=== PATIENT | female | born 2000 | race Caucasian/White ===

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

== ENCOUNTER 2019-04-21 21:07 | Emergency (ER) | payer SELFPAY ==
[~2019-04-21] VITALS: Ht 165 cm; Wt 99.7 kg
[~2019-04-21 21:07] MED LIST changes: -BENZ-13 PO; +BENZ100C18 PO; +METR-145 PO; -METR500T21 PO; +ONDA4TAB8 PO
[2019-04-21] MEDS ORDERED: LACTATED RINGERS 1,000 ML IV ONE (22:37)
[2019-04-21 22:45] LABS: BILIRUBIN,URINE NEGATIVE (NEGATIVE); CLARITY,URINE SLIGHTLY CLOUDY; COLOR,URINE YELLOW; GLUCOSE, URINE (UA) NEGATIVE (NEGATIVE); KETONES,URINE NEGATIVE (NEGATIVE); LEUKOCYTE ESTERASE ,URINE 1+ (NEGATIVE); NITRITE,URINE NEGATIVE (NEGATIVE); PH,URINE 5 (5-9); PROTEIN,URINE 2+ (NEGATIVE)
[2019-04-21] MEDS ORDERED: KETOROLAC 30 MG/ML VIAL IVP STA (22:45)
[2019-04-21] MEDS ORDERED: ONDANSETRON 4 MG/2 ML (SDV) Z0FRAN IVP ONE (22:45)
[2019-04-21 22:46] LABS: BASOPHILS # (AUTO) 0.1 10^3/uL (0.0-0.1); BASOPHILS % (AUTO) 0 % (0-10); EOSINOPHILS # (AUTO) 0.4 10^3/uL (0.0-0.3); EOSINOPHILS % (AUTO) 2 % (0-10); HEMATOCRIT 41 % (35-52); HEMOGLOBIN 13.5 G/DL (11.5-16.0); LYMPHOCYTES # (AUTO) 5.6 X 10^3 (1.0-4.0); LYMPHOCYTES % (AUTO) 39 % (12-44); MEAN CORPUSCULAR HEMOGLOBIN 29 PG (25-34); MEAN CORPUSCULAR HGB CONC 33 G/DL (32-36); MEAN CORPUSCULAR VOLUME 88 FL (80-99); MEAN PLATELET VOLUME 10.5 FL (7.4-10.4); MONOCYTES # (AUTO) 1.2 X 10^3 (0.0-1.0); MONOCYTES % (AUTO) 8 % (0-12); NEUTROPHILS # (AUTO) 7.3 X 10^3 (1.8-7.8); NEUTROPHILS % (AUTO) 50 % (42-75); PLATELET COUNT 419 10^3/uL (130-400); WHITE BLOOD COUNT 14.6 10^3/uL (4.3-11.0)
[2019-04-21 22:59] LABS: RBC,URINE 25-50 /HPF
[2019-04-21 23:00] LABS: BACTERIA,URINE MODERATE /HPF
[2019-04-21 23:01] LABS: ALANINE AMINOTRANSFERASE 22 U/L (0-55); ALBUMIN 4.4 GM/DL (3.2-4.5); ALKALINE PHOSPHATASE 113 U/L (40-136); AMYLASE 61 U/L (25-125); BILIRUBIN,TOTAL 0.2 MG/DL (0.1-1.0); BUN/CREATININE RATIO 13; CALCIUM 9.4 MG/DL (8.5-10.1); CARBON DIOXIDE 23 MMOL/L (21-32); CHLORIDE 106 MMOL/L (98-107); CREATININE SERUM 1.11 MG/DL (0.60-1.30); GFR ESTIMATED > 60; GLUCOSE 99 MG/DL (70-105); LIPASE 30 U/L (8-78); POTASSIUM 3.7 MMOL/L (3.6-5.0); SODIUM 140 MMOL/L (135-145); TOTAL PROTEIN 7.8 GM/DL (6.4-8.2)
[2019-04-21 23:05] LABS: NEUTROPHILS % (MANUAL) 50 %
[2019-04-21 23:06] LABS: EOSINOPHILS % (MANUAL) 1 %; LYMPHOCYTES % (MANUAL) 36 %; MONOCYTES % (MANUAL) 13 %; RBC MORPH NORMAL
[2019-04-21] MEDS ORDERED: RX-ONDANSETRON 4 MG ODT (ZOFRAN) PPK #4 PO STA (23:59)
[2019-04-22] MEDS ORDERED: TAMSULOSIN 0.4 MG (FLOMAX) CAP PO SCH
[2019-04-22] MEDS ORDERED: cefTRIAXone FOR IV USE 1,000 MG in WATER (STERILE) FOR INJECTION 10 ML IV ONE ×2
[2019-04-22] MEDS ORDERED: RX-HYDROCODONE/APAP 5/325 MG #4 TAB PK PO PRN
[2019-04-22] MEDS ORDERED: NITR-65 PO (00:03)
[2019-04-22] MEDS ORDERED: TAMS0.4C98 PO (00:03)
[2019-04-22] MEDS ORDERED: ONDA4TAB11 PO (00:03)
[2019-04-22] MEDS ORDERED: HYDR-87 PO (00:03)
--- NOTE | 2019-04-22 00:03 | ED Abdominal Pain ---
General Chief Complaint: Abdominal/GI Problems Stated Complaint: ABD PAIN, LOWER BACK PAIN, VOMITING Allergies and Home Medications Allergies Coded Allergies: No Known Drug Allergies (Unverified , 02/17/14) Home Medications Cephalexin 500 Mg Tablet, 500 MG PO BID Prescribed by: IVÁN JIMENES on 10/13/16 0502 Hydrocodone/Ibuprofen 1 Each Tablet, 1 EACH PO Q4H PRN for PAIN-MODERATE Prescribed by: GUNNER BEAL on 04/22/19 0003 Metronidazole 500 Mg Tablet, 500 MG PO BID Prescribed by: IVÁN JIMENES on 10/13/16 0502 Nitrofurantoin Monohyd/M-Cryst 100 Mg Capsule, 100 MG PO BID Prescribed by: GUNNER BEAL on 04/22/192 Ondansetron 4 Mg Tab.rapdis, 4 MG PO Q6H Prescribed by: ZORAIDA CHO on 10/13/16 173 Ondansetron 4 Mg Tab.rapdis, 4 MG PO Q4H Prescribed by: GUNNER BEAL on 04/22/19 0003 Tamsulosin HCl 0.4 Mg Cap, 0.4 MG PO DAILY Prescribed by: GUNNER BEAL on 04/22/19 0003 Past Rhosguk-Uxnwwy-Qlaega Hx Patient Social History Alcohol Beverage of Choice: Vodka Type Used: Cigarettes 2nd Hand Smoke Exposure: Yes Recent Foreign Travel: No Contact w/Someone Who Travel: No Recent Hopitalizations: No Immunizations Up To Date Tetanus Booster (TDap): Less than 5yrs PED Vaccines UTD: Yes Seasonal Allergies Seasonal Allergies: No Past Medical History Adenoidectomy, Tonsillectomy Asthma Reproductive Disorders: Yes Female Reproductive Disorders: Ovarian Cyst, Polycystic Ovarian Dis Sexually Transmitted Disease: No Family Medical History No Pertinent Family Hx Physical Exam Vital Signs Capillary Refill : Height/Weight/BMI Height: 5'4.00" Weight: 160lbs. oz. 72.633088do; 21.09 BMI Method:Stated Focused Exam Lactate Level 04/21/19 22:30: Lactic Acid Level 1.17 Lactic Acid Level Laboratory Tests Test 04/21/19 22:30 Lactic Acid Level 1.17 MMOL/L (0.50-2.00) Progress/Results/Core Measures Results/Orders Lab Results Laboratory Tests Test 04/21/19 22:30 04/21/19 22:32 Range/Units Lactic Acid Level 1.17 0.50-2.00 MMOL/L White Blood Count 14.6 H 4.3-11.0 10^3/uL Red Blood Count 4.64 4.35-5.85 10^6/uL Hemoglobin 13.5 11.5-16.0 G/DL Hematocrit 41 35-52 % Mean Corpuscular Volume 88 80-99 FL Mean Corpuscular Hemoglobin 29 25-34 PG Mean Corpuscular Hemoglobin Concent 33 32-36 G/DL Red Cell Distribution Width 13.0 10.0-14.5 % Platelet Count 419 H 130-400 10^3/uL Mean Platelet Volume 10.5 H 7.4-10.4 FL Neutrophils (%) (Auto) 50 42-75 % Lymphocytes (%) (Auto) 39 12-44 % Monocytes (%) (Auto) 8 0-12 % Eosinophils (%) (Auto) 2 0-10 % Basophils (%) (Auto) 0 0-10 % Neutrophils # (Auto) 7.3 1.8-7.8 X 10^3 Lymphocytes # (Auto) 5.6 H 1.0-4.0 X 10^3 Monocytes # (Auto) 1.2 H 0.0-1.0 X 10^3 Eosinophils # (Auto) 0.4 H 0.0-0.3 10^3/uL Basophils # (Auto) 0.1 0.0-0.1 10^3/uL Neutrophils % (Manual) 50 % Lymphocytes % (Manual) 36 % Monocytes % (Manual) 13 % Eosinophils % (Manual) 1 % Blood Morphology Comment NORMAL Urine Color YELLOW Urine Clarity SLIGHTLY CLOUDY Urine pH 5 5-9 Urine Specific [place] 1.025 H 1.016-1.022 Urine Protein 2+ H NEGATIVE Urine Glucose (UA) NEGATIVE NEGATIVE Urine Ketones NEGATIVE NEGATIVE Urine Nitrite NEGATIVE NEGATIVE Urine Bilirubin NEGATIVE NEGATIVE Urine Urobilinogen 1 NORMAL MG/DL Urine Leukocyte Esterase 1+ H NEGATIVE Urine RBC (Auto) 5+ H NEGATIVE Urine RBC 25-50 H /HPF Urine WBC 5-10 H /HPF Urine Squamous Epithelial Cells 5-10 /HPF Urine Crystals NONE /LPF Urine Bacteria MODERATE H /HPF Urine Casts NONE /LPF Urine Mucus NEGATIVE /LPF Urine Culture Indicated YES Sodium Level 140 135-145 MMOL/L Potassium Level 3.7 3.6-5.0 MMOL/L Chloride Level 106 98-107 MMOL/L Carbon Dioxide Level 23 21-32 MMOL/L Anion Gap 11 5-14 MMOL/L Blood Urea Nitrogen 14 7-18 MG/DL Creatinine 1.11 0.60-1.30 MG/DL Estimat Glomerular Filtration Rate > 60 BUN/Creatinine Ratio 13 Glucose Level 99 70-105 MG/DL Calcium Level 9.4 8.5-10.1 MG/DL Corrected Calcium 9.1 8.5-10.1 MG/DL Total Bilirubin 0.2 0.1-1.0 MG/DL Aspartate Amino Transf (AST/SGOT) 21 5-34 U/L Alanine Aminotransferase (ALT/SGPT) 22 0-55 U/L Alkaline Phosphatase 113 40-136 U/L Total Protein 7.8 6.4-8.2 GM/DL Albumin 4.4 3.2-4.5 GM/DL Amylase Level 61 25-125 U/L Lipase 30 8-78 U/L My Orders Orders - GUNNER BEAL DO Ed Iv/Invasive Line Start (04/21/19 22:37) Urine Bedside (04/21/19 22:37) Amylase (04/21/19 22:37) Cbc With Automated Diff (04/21/19 22:37) Comprehensive Metabolic Panel (04/21/19 22:37) Lipase (04/21/19 22:37) Ua Culture If Indicated (04/21/19 22:37) Ed Iv/Invasive Line Start (04/21/19 22:37) Lactated Ringers (Lr 1000 Ml Iv Solution (04/21/19 22:37) Lactic Acid Analyzer (04/21/19 22:40) Blood Culture (04/21/19 22:40) Ct Abd/Pelvis Wo(Kidney Stone) (04/21/19 22:45) Acute Abd Series (04/21/19 22:45) Ketorolac Injection (Toradol Injection) (04/21/19 22:45) Ondansetron Injection (Zofran Injectio (04/21/19 22:45) Manual Differential (04/21/19 22:32) Urine Culture (04/21/19 22:32) Tamsulosin Capsule (Flomax Capsule) (04/22/19 00:00) Ceftriaxone For Iv Use (Rocephin For I (04/22/19 00:00) Rx-Hydrocodone/Apap 5-325 Mg (Rx-Vicodin (04/22/19 00:00) Rx-Ondansetron Po (Rx-Zofran Po) (04/21/19 23:59) Medications Given in ED Current Medications Medications Dose Ordered Sig/Ant Route Start Time Stop Time Status Last Admin Dose Admin Acetaminophen/ Hydrocodone Bitart 1 ea Q4H PRN PO 04/22/19 00:00 04/22/19 00:21 1 EA Ceftriaxone Sodium 1000 mg/ Sterile Water 10 ml @ 200 mls/hr ONCE ONCE IV 04/22/19 00:00 04/22/19 00:02 DC 04/22/19 00:21 200 MLS/HR Lactated Ringer's 1,000 ml @ 0 mls/hr Q0M ONCE IV 04/21/19 22:37 04/21/19 22:39 DC 04/21/19 22:44 1,000 MLS/HR Ondansetron HCl 4 mg ONCE ONCE IVP 04/21/19 22:45 04/21/19 22:47 DC 04/21/19 22:58 4 MG Departure Impression Primary Impression: Calculus of distal left ureter Additional Impression: Urinary tract infection Disposition: 01 HOME, SELF-CARE Condition: Stable Departure-Patient Inst. Referrals: [facility] [place] ([place]/Family) Primary Care Physician WHITLEY ROY MD Patient Instructions: How to Strain Your Urine, Kidney Stones (DC), Urinary Tract Infection, Child (DC) Add. Discharge Instructions: STRAIN ALL URINE--RETURN ANY STONES TO YOUR DR'S OFFICE LOTS OF FLUIDS--DRINK ENOUGH SO YOU ARE URINATING EVERY 2-3 HOURS WHILE AWAKE FOLLOW UP WITH DR. ROY THIS WEEK FOR FURTHER CARE All discharge instructions reviewed with patient and/or family. Voiced understanding. Scripts Tamsulosin HCl (Flomax) 0.4 Mg Cap 0.4 MG PO DAILY, #10 CAP Prov: LIAN,GUNNER K DO 04/22/19 Hydrocodone/Ibuprofen (Hydrocodone-Ibuprofen 7.5-200) 1 Each Tablet 1 EACH PO Q4H PRN for PAIN-MODERATE for 3 Days, #20 TAB Prov: LAIN,GUNNER K DO 04/22/19 Ondansetron (Ondansetron Odt) 4 Mg Tab.rapdis 4 MG PO Q4H for Nausea/Vomiting, #10 TAB Prov: GUNNER BEAL DO 04/22/19 Nitrofurantoin Monohyd/M-Cryst (Macrobid 100 mg Capsule) 100 Mg Capsule 100 MG PO BID, #20 CAP Prov: GUNNER BEAL DO 04/22/19 GUNNER BEAL DO Apr 22, 2019 00:03
--- NOTE | 2019-04-22 06:55 | Diagnostic Imaging Report ---
PROCEDURE: CT urinary tract, rule out kidney stone. TECHNIQUE: Multiple contiguous axial images were obtained through the abdomen and pelvis without the use of intravenous contrast. Auto Exposure Controls were utilized during the CT exam to meet ALARA standards for radiation dose reduction. INDICATION: Low back pain. Comparison with 10/13/2016. FINDINGS: There are several 3 mm nonobstructing calculi scattered throughout both kidneys. There is dilatation of the left ureter. There is a 3 mm calculus in the distal left ureter at the UVJ. Bladder is decompressed. The abdominal organs otherwise appear normal. Bowel gas pattern is normal throughout. Appendix is normal. No bony abnormalities. IMPRESSION: 1. Mild hydronephrosis left ureter with 3 mm stone at the ureterovesical junction. 2. Bilateral nonobstructing nephrolithiasis. These findings are concordant with the preliminary report. Dictated by: Dictated on workstation # [id number]
--- NOTE | 2019-04-22 07:04 | Diagnostic Imaging Report ---
INDICATION: Back pain. 3 views. FINDINGS: Lungs are clear. There is no evidence of free air under the diaphragm. The stomach and small bowel are nondistended. The colon shows normal stool and gas pattern to the rectum. No evidence of constipation or obstruction. There is no organomegaly. There is a tiny calcification noted in the pelvis just left of midline which may represent ureteral or bladder calculus. IMPRESSION: Tiny calcification noted in the pelvis left of midline. This may represent ureteral or bladder calculus with patient's symptoms. Dictated by: Dictated on workstation # [id number]
== END 2019-04-22 00:43 | disposition home or self-care (01) ==
LOC: EDUNIT# 21:07 → ER 21:08
DX: N20.1 Calculus of ureter (principal); N39.0 Urinary tract infection, site not specified; J45.909 Unspecified asthma, uncomplicated; Z77.22 Contact with and (suspected) exposure to environmental tobacco smoke (acute) (chronic); Z90.89 Acquired absence of other organs
CPT/HCPCS: 36415; 74022; 74176; 80053; 81000; 82150; 83605; 83690; 84703; 85007; 85027; 87040; 87088; 96361; 96374; 96375

== ENCOUNTER 2022-01-16 04:57 | Emergency (ER) | payer SELFPAY ==
[~2022-01-16 04:57] MED LIST changes: +HYDR-4085 PO; +NITR-65 PO; +ONDA4TAB11 PO; -SULF1TAB35 PO; +SULF1TAB38 PO; +TMSL.4C PO
[2022-01-16] MEDS ORDERED: morphine INJ 10 MG/ML 1ML (SYR OR VIAL) IVP STA (05:15)
[2022-01-16] MEDS ORDERED: KETOROLAC 30 MG/ML VIAL IVP ONE (05:15)
[2022-01-16] MEDS ORDERED: ONDANSETRON 4 MG/2 ML (SDV) Z0FRAN IVP ONE (05:15)
[2022-01-16] MEDS ORDERED: TAMSULOSIN 0.4 MG (FLOMAX) CAP PO STA (05:15)
--- NOTE | 2022-01-16 05:20 | ED GI ---
General Chief Complaint: Back Problems Stated Complaint: ABD PAIN,VOMITING,BACK PAIN Source of Information: Patient Exam Limitations: No Limitations History of Present Illness Date Seen by Provider: Jan 16, 2022 Time Seen by Provider: 04:59 Initial Comments 21-year-old female with past medical history of kidney stones coming in due to left flank pain that is been going on for roughly 2 days with associated nonbloody nonbilious vomiting. The pain is intermittent, sharp, stays in her left flank, severe. Nothing really seems to make it better or worse. She does not try to take any medicines for it. She says this feels exactly like her previous kidney stone in 2019. She is never needed any type of urologic pro cedure. Otherwise denying any fever, significant abdominal pain, dysuria, hematuria, diarrhea, chest pain, shortness of breath, or any other concerns. LMP was just about a month ago Allergies and Home Medications Allergies Coded Allergies: No Known Drug Allergies (Unverified , 02/17/14) Patient Home Medication List Home Medication List Reviewed: Yes Cephalexin (Cephalexin) 500 Mg Tablet, 500 MG PO BID Prescribed by: IVÁN JIMENES on 10/13/16 0502 Hydrocodone/Ibuprofen (Hydrocodone-Ibuprofen 7.5-200) 1 Each Tablet, 1 EACH PO Q4H PRN for PAIN-MODERATE Prescribed by: GUNNER BEAL on 04/22/192 Ketorolac Tromethamine (Ketorolac Tromethamine) 10 Mg Tablet, 10 MG PO Q8H Prescribed by: QUEENIE CID on 01/16/22 0533 Metronidazole (Metronidazole) 500 Mg Tablet, 500 MG PO BID Prescribed by: IVÁN JIMENES on 10/13/16 0502 Nitrofurantoin Monohyd/M-Cryst (Macrobid 100 mg Capsule) 100 Mg Capsule, 100 MG PO BID Prescribed by: GUNNER BEAL on 04/22/192 Ondansetron (Zofran Odt) 4 Mg Tab.rapdis, 4 MG PO Q6H Prescribed by: ZORAIDA CHO on 10/13/16 1730 Ondansetron (Ondansetron Odt) 4 Mg Tab.rapdis, 4 MG PO Q4H Prescribed by: GUNNER BEAL on 04/22/192 Ondansetron (Ondansetron Odt) 4 Mg Tab.rapdis, 4 MG PO Q6H PRN for NAUSEA/VOMITING-1ST LINE Prescribed by: QUEENIE CID on 01/16/22 0533 Oxycodone HCl (Oxycodone HCl) 5 Mg Tablet, 5 MG PO Q6H PRN for PAIN-SEVERE (8- 10) Prescribed by: QUEENIE CID on 01/16/2233 Tamsulosin HCl (Flomax) 0.4 Mg Cap, 0.4 MG PO DAILY Prescribed by: GUNNER BEAL on 04/22/19 0003 Tamsulosin HCl (Flomax) 0.4 Mg Cap, 0.4 MG PO DAILY Prescribed by: QUEENIE CID on 01/16/2233 Review of Systems Review of Systems Constitutional: No fever EENTM: No Blurred Vision Respiratory: Denies Cough Cardiovascular: Denies Chest Pain Gastrointestinal: Denies Abdominal Pain; Nausea, Vomiting Genitourinary: Denies Burning; Flank Pain Musculoskeletal: no symptoms reported Skin: no symptoms reported Psychiatric/Neurological: No Symptoms Reported Endocrine: No Symptoms Reported Hematologic/Lymphatic: No Symptoms Reported All Other Systems Reviewed Negative Unless Noted: Yes Past Nsolkrb-Awhfrn-Vqjuhj Hx Patient Social History Tobacco Use?: No Tobacco type used: Cigarettes Smoking Status: Former Smoker Use of E-Cig and/or Vaping dev: No Substance use?: No Alcohol Use?: No Pt feels they are or have been: No Immunizations Up To Date Tetanus Booster (TDap): Less than 5yrs PED Vaccines UTD: Yes Influenza Vaccine Up-to-Date: No; Not Current Seasonal Allergies Seasonal Allergies: No Past Medical History Surgeries: Yes Adenoidectomy, Tonsillectomy Respiratory: Yes Asthma Cardiac: No Neurological: No Reproductive Disorders: Yes Female Reproductive Disorders: Ovarian Cyst, Polycystic Ovarian Dis Sexually Transmitted Disease: No Genitourinary: Yes UTI-Chronic Gastrointestinal: No Musculoskeletal: No Endocrine: Yes (OBESITY) HEENT: No Cancer: No Psychosocial: No Integumentary: No Blood Disorders: No Family Medical History No Pertinent Family Hx Physical Exam Vital Signs Vital Signs - First Documented 01/16/22 05:15 Temp 36.1 Pulse 88 Resp 18 B/P (MAP) 135/99 (111) Pulse Ox 97 O2 Delivery Room Air Capillary Refill : Height/Weight/BMI Height: 5'4.00" Weight: 160lbs. oz. 72.852146hj; 36.00 BMI Method:Stated General Appearance: WD/WN, mild distress HEENT: PERRL/EOMI, normal ENT inspection, pharynx normal Neck: non-tender, full range of motion, supple, normal inspection Respiratory: chest non-tender, lungs clear, normal breath sounds, no respiratory distress, no accessory muscle use Cardiovascular: regular rate, rhythm, no edema, no murmur Gastrointestinal: normal bowel sounds, non tender, soft; No distended, No guarding, No rebound Extremities: normal range of motion, non-tender, normal inspection, no pedal edema, no calf tenderness, normal capillary refill Back: normal inspection; No CVA tenderness (R); CVA tenderness (L) Neurologic/Psychiatric: no motor/sensory deficits, alert, normal mood/affect Skin: normal color, warm/dry Lymphatic: no adenopathy Progress/Results/Core Measures Results/Orders Lab Results Laboratory Tests Test 01/16/22 05:19 01/16/22 05:20 Range/Units White Blood Count 13.2 H 4.3-11.0 10^3/uL Red Blood Count 4.44 3.80-5.11 10^6/uL Hemoglobin 13.9 11.5-16.0 g/dL Hematocrit 41 35-52 % Mean Corpuscular Volume 92 80-99 fL Mean Corpuscular Hemoglobin 31 25-34 pg Mean Corpuscular Hemoglobin Concent 34 32-36 g/dL Red Cell Distribution Width 12.5 10.0-14.5 % Platelet Count 364 130-400 10^3/uL Mean Platelet Volume 10.4 9.0-12.2 fL Immature Granulocyte % (Auto) 0 % Neutrophils (%) (Auto) 56 42-75 % Lymphocytes (%) (Auto) 33 12-44 % Monocytes (%) (Auto) 8 0-12 % Eosinophils (%) (Auto) 2 0-10 % Basophils (%) (Auto) 1 0-10 % Neutrophils # (Auto) 7.3 1.8-7.8 10^3/uL Lymphocytes # (Auto) 4.4 H 1.0-4.0 10^3/uL Monocytes # (Auto) 1.1 H 0.0-1.0 10^3/uL Eosinophils # (Auto) 0.2 0.0-0.3 10^3/uL Basophils # (Auto) 0.1 0.0-0.1 10^3/uL Immature Granulocyte # (Auto) 0.1 0.0-0.1 10^3/uL Sodium Level 140 135-145 MMOL/L Potassium Level 3.7 3.6-5.0 MMOL/L Chloride Level 108 H 98-107 MMOL/L Carbon Dioxide Level 20 L 21-32 MMOL/L Anion Gap 12 5-14 MMOL/L Creatinine 0.75 0.60-1.30 MG/DL Estimat Glomerular Filtration Rate 115 Glucose Level 102 70-105 MG/DL Calcium Level 9.3 8.5-10.1 MG/DL Corrected Calcium 9.1 8.5-10.1 MG/DL Total Bilirubin 0.3 0.1-1.0 MG/DL Alkaline Phosphatase 87 40-136 U/L Total Protein 7.4 6.4-8.2 GM/DL Albumin 4.3 3.2-4.5 GM/DL Urine Color YELLOW Urine Clarity SL CLOUDY Urine pH 5.5 5-9 Urine Specific [place] >=1.030 1.016-1.022 Urine Protein NEGATIVE NEGATIVE Urine Glucose (UA) NEGATIVE NEGATIVE Urine Ketones NEGATIVE NEGATIVE Urine Nitrite NEGATIVE NEGATIVE Urine Bilirubin NEGATIVE NEGATIVE Urine Urobilinogen 0.2 < = 1.0 MG/DL Urine Leukocyte Esterase NEGATIVE NEGATIVE Urine RBC (Auto) 3+ H NEGATIVE Urine RBC >100 H /HPF Urine WBC NONE /HPF Urine Squamous Epithelial Cells 10-25 H /HPF Urine Crystals NONE /LPF Urine Bacteria NEGATIVE /HPF Urine Casts NONE /LPF Urine Mucus LARGE H /LPF Urine Culture Indicated NO My Orders Orders - QUEENIE CID MD Urine Bedside (01/16/22 05:07) Ua Culture If Indicated (01/16/22 05:07) Cbc With Automated Diff (01/16/22 05:15) Comprehensive Metabolic Panel (01/16/22 05:15) Lipase (01/16/22 05:15) Abdomen/Kub 1view (01/16/22 05:15) Ketorolac Injection (Toradol Injection) (01/16/22 05:15) Morphine Injection (Morphine Injection (01/16/22 05:15) Ondansetron Injection (Zofran Injectio (01/16/22 05:15) Tamsulosin Capsule (Flomax Capsule) (01/16/22 05:15) Medications Given in ED Current Medications Medications Dose Ordered Sig/Ant Route Start Time Stop Time Status Last Admin Dose Admin Ketorolac Tromethamine 15 mg ONCE ONCE IVP 01/16/22 05:15 01/16/22 05:18 DC 01/16/22 05:29 15 MG Ondansetron HCl 4 mg ONCE ONCE IVP 01/16/22 05:15 01/16/22 05:18 DC 01/16/22 05:28 4 MG Vital Signs/I&O 01/16/22 05:15 Temp 36.1 Pulse 88 Resp 18 B/P (MAP) 135/99 (111) Pulse Ox 97 O2 Delivery Room Air Progress Progress Note : Progress Note 41-year-old female with above history coming in due to left flank pain. ABCs were intact and vitals were stable on presentation. Physical exam with left- sided CVA tenderness. I did a binmo-kf-hcrt ultrasound and she has hydronephrosis on the left concerning for ureterolithiasis. Right kidney is normal. Patient has a known history of kidney stones, this feels like a kidney stone, we have a CT proving she has made kidney stones in the past when she visited our ER in 2019. We will forego more CT imaging at this time given the likelihood of the diagnosis. KUB ordered to help her follow-up as an outpatient if she were to follow-up with Dr. Roy. An IV was placed and she was given morphine for pain, Toradol, Zofran, and oral tamsulosin. Departure Impression Primary Impression: Ureterolithiasis Disposition: 01 HOME, SELF-CARE Condition: Improved Departure-Patient Inst. Decision time for Depature: 06:00 Referrals: NO,LOCAL PHYSICIAN (PCP) Primary Care Physician WHITLEY ROY MD Patient Instructions: Kidney Stones in Adults Add. Discharge Instructions: You have a kidney stone on the left side which sometimes can take days to weeks to pass. Take the ketorolac that was sent to the pharmacy for pain. If you have pain on top of this then you can take the oxycodone. Do not mix ibuprofen or naproxen with the ketorolac. Once you are done with that prescription though you can replace it with ibuprofen 600 mg every 6 hours which is nomx-ssx-strateh. Drink plenty of fluids. If things are not improving in the next couple of days, call Dr. Roy's office whose number is in this paperwork to schedule an appointment. He is the urologist in [place]. Scripts Tamsulosin HCl (Flomax) 0.4 Mg Cap 0.4 MG PO DAILY for 14 Days, #14 CAP Prov: QUEENIE CID MD 01/16/22 Ondansetron (Ondansetron Odt) 4 Mg Tab.rapdis 4 MG PO Q6H PRN for NAUSEA/VOMITING-1ST LINE for 5 Days, #20 TAB Prov: QUEENIE CID MD 01/16/22 Ketorolac Tromethamine (Ketorolac Tromethamine) 10 Mg Tablet 10 MG PO Q8H for 4 Days, #12 TAB Prov: QUEENIE CID MD 01/16/22 Oxycodone HCl (Oxycodone HCl) 5 Mg Tablet 5 MG PO Q6H PRN for PAIN-SEVERE (8-10) for 3 Days, #12 TAB Prov: QUEENIE CID MD 01/16/22 Work/School Note: Family Work Note Patient Received Medical Care In the Emergency Department On: Jan 16, 2022 Patient Will Be Able to Return to Work/School On: Jan 17, 2022 QUEENIE CID MD Jan 16, 2022 05:20
[2022-01-16 05:23] LABS: BASOPHILS # (AUTO) 0.1 10^3/uL (0.0-0.1); BASOPHILS % (AUTO) 1 % (0-10); EOSINOPHILS # (AUTO) 0.2 10^3/uL (0.0-0.3); EOSINOPHILS % (AUTO) 2 % (0-10); HEMATOCRIT 41 % (35-52); HEMOGLOBIN 13.9 g/dL (11.5-16.0); LYMPHOCYTES # (AUTO) 4.4 10^3/uL (1.0-4.0); LYMPHOCYTES % (AUTO) 33 % (12-44); MEAN CORPUSCULAR HEMOGLOBIN 31 pg (25-34); MEAN CORPUSCULAR HGB CONC 34 g/dL (32-36); MEAN CORPUSCULAR VOLUME 92 fL (80-99); MEAN PLATELET VOLUME 10.4 fL (9.0-12.2); MONOCYTES # (AUTO) 1.1 10^3/uL (0.0-1.0); MONOCYTES % (AUTO) 8 % (0-12); NEUTROPHILS # (AUTO) 7.3 10^3/uL (1.8-7.8); NEUTROPHILS % (AUTO) 56 % (42-75); PLATELET COUNT 364 10^3/uL (130-400); WHITE BLOOD COUNT 13.2 10^3/uL (4.3-11.0)
[2022-01-16 05:27] LABS: BILIRUBIN,URINE NEGATIVE (NEGATIVE); CLARITY,URINE SL CLOUDY; COLOR,URINE YELLOW; GLUCOSE, URINE (UA) NEGATIVE (NEGATIVE); KETONES,URINE NEGATIVE (NEGATIVE); LEUKOCYTE ESTERASE ,URINE NEGATIVE (NEGATIVE); NITRITE,URINE NEGATIVE (NEGATIVE); PH,URINE 5.5 (5-9); PROTEIN,URINE NEGATIVE (NEGATIVE)
[2022-01-16] MEDS ORDERED: ONDA4TAB11 PO (05:33)
[2022-01-16] MEDS ORDERED: KETO10TA PO (05:33)
[2022-01-16] MEDS ORDERED: OXYC5TAB PO (05:33)
[2022-01-16] MEDS ORDERED: TMSL.4C PO (05:33)
[2022-01-16 05:38] LABS: BACTERIA,URINE NEGATIVE /HPF; RBC,URINE >100 /HPF
[2022-01-16 05:41] LABS: ALBUMIN 4.3 GM/DL (3.2-4.5); POTASSIUM 3.7 MMOL/L (3.6-5.0)
[2022-01-16 05:42] LABS: CALCIUM 9.3 MG/DL (8.5-10.1)
[2022-01-16 05:43] LABS: TOTAL PROTEIN 7.4 GM/DL (6.4-8.2)
[2022-01-16 05:45] LABS: BILIRUBIN,TOTAL 0.3 MG/DL (0.1-1.0)
[2022-01-16 05:47] LABS: CREATININE SERUM 0.75 MG/DL (0.60-1.30)
[2022-01-16 05:49] VITALS: BP 126/93
--- NOTE | 2022-01-16 07:43 | Diagnostic Imaging Report ---
REASON FOR EXAM: Left-sided flank pain. COMPARISON: CT on 04/21/2019. TECHNIQUE: 2 views of the abdomen FINDINGS: The bowel gas pattern is nondistended. No large collection of free intraperitoneal air is seen. Scattered small amounts of gas and fecal material are present in the colon. Calcification is seen in the expected area of the proximal left ureter measuring 0.7 cm. Rounded calcification is seen in the pelvis left of midline measuring 0.6 cm. The osseous structures are age-appropriate. IMPRESSION: 1. Possible calculus within the proximal left ureter measuring 0.7 cm. A rounded calcification in the pelvis left of midline is favored to represent a phlebolith and measures 0.6 cm although this could be within the more distal left ureter. Consider CT of the abdomen and pelvis to further evaluate. 2. No evidence of bowel obstruction or large collection of free intraperitoneal air. Dictated by: Dictated on workstation # [id number]
== END 2022-01-16 05:57 | disposition home or self-care (01) ==
LOC: EDUNIT# 04:57 → ER 05:01
DX: N13.2 Hydronephrosis with renal and ureteral calculous obstruction (principal); E66.9 Obesity, unspecified; Z68.36 Body mass index [BMI] 36.0-36.9, adult; Z87.442 Personal history of urinary calculi; Z87.891 Personal history of nicotine dependence
CPT/HCPCS: 36415; 74018; 80053; 81000; 83690; 84703; 85025

== ENCOUNTER 2022-01-22 10:02 | Emergency (ER) | payer SELFPAY ==
[~2022-01-22] VITALS: Ht 165.1 cm; Wt 81.8 kg
[~2022-01-22 10:02] MED LIST changes: +KETO10TA PO; +OXYC5TAB PO
[2022-01-22 10:35] LABS: BASOPHILS # (AUTO) 0.1 10^3/uL (0.0-0.1); BASOPHILS % (AUTO) 1 % (0-10); EOSINOPHILS # (AUTO) 0.2 10^3/uL (0.0-0.3); EOSINOPHILS % (AUTO) 2 % (0-10); HEMATOCRIT 38 % (35-52); HEMOGLOBIN 12.6 g/dL (11.5-16.0); LYMPHOCYTES # (AUTO) 3.1 10^3/uL (1.0-4.0); LYMPHOCYTES % (AUTO) 30 % (12-44); MEAN CORPUSCULAR HEMOGLOBIN 31 pg (25-34); MEAN CORPUSCULAR HGB CONC 33 g/dL (32-36); MEAN CORPUSCULAR VOLUME 93 fL (80-99); MEAN PLATELET VOLUME 10.3 fL (9.0-12.2); MONOCYTES # (AUTO) 0.7 10^3/uL (0.0-1.0); MONOCYTES % (AUTO) 7 % (0-12); NEUTROPHILS # (AUTO) 6.2 10^3/uL (1.8-7.8); NEUTROPHILS % (AUTO) 60 % (42-75); PLATELET COUNT 349 10^3/uL (130-400); WHITE BLOOD COUNT 10.3 10^3/uL (4.3-11.0)
[2022-01-22 10:44] LABS: BILIRUBIN,URINE NEGATIVE (NEGATIVE); CLARITY,URINE CLEAR; COLOR,URINE YELLOW; GLUCOSE, URINE (UA) NEGATIVE (NEGATIVE); KETONES,URINE NEGATIVE (NEGATIVE); LEUKOCYTE ESTERASE ,URINE 1+ (NEGATIVE); NITRITE,URINE NEGATIVE (NEGATIVE); PROTEIN,URINE NEGATIVE (NEGATIVE)
[2022-01-22 10:48] LABS: ALBUMIN 4.2 GM/DL (3.2-4.5); POTASSIUM 4.2 MMOL/L (3.6-5.0)
[2022-01-22 10:49] LABS: CALCIUM 9.4 MG/DL (8.5-10.1)
[2022-01-22 10:50] LABS: TOTAL PROTEIN 7.2 GM/DL (6.4-8.2)
[2022-01-22 10:52] LABS: BILIRUBIN,TOTAL 0.4 MG/DL (0.1-1.0)
[2022-01-22 10:54] LABS: CREATININE SERUM 0.94 MG/DL (0.60-1.30)
[2022-01-22 11:08] LABS: BACTERIA,URINE TRACE /HPF; RBC,URINE RARE /HPF
[2022-01-22] MEDS ORDERED: NS IV 1000 ML 1,000 ML IV STA (11:12)
[2022-01-22] MEDS ORDERED: fentaNYL INJ 100 MCG/2 ML AMP IVP STA (11:12)
[2022-01-22] MEDS ORDERED: ONDANSETRON 4 MG/2 ML (SDV) Z0FRAN IVP ONE (11:15)
--- NOTE | 2022-01-22 11:15 | ED GU-Female ---
General Chief Complaint: - Reproductive Stated Complaint: KIDNEY STONES Nursing Triage Note: c/o continued left sided flank and lower abdominal pain after being diagnosed with a kidney stone on saturdayjanuary 16. states she has not followed up with dr lambert yet today. verbalizes she took all of her pain medication she was prescribed at home. still has nausea med at home. states her LBM was January 14. reports nausea and vomiting x2 in last 24 hours. last oral intake was around 1999 last evening. also verbalizes she has a headache. Source: patient Exam Limitations: no limitations (QUEENIE WATSON) History of Present Illness Date Seen by Provider: Jan 22, 2022 Time Seen by Provider: 11:14 Initial Comments Patient is a 21-year-old female presents ED with left flank pain and left lower quadrant pain. Symptoms started last Saturday. She was seen here diagnosed with kidney stone. Patient Was discharged with Zofran, oxycodone and she believes Flomax. She has had continuous pain that is dull with intermittent sharp stabbing pain worse in the morning and evenings. She has been vomiting since Saturday. Last bowel movement was last Saturday. Currently taking oxycodone. She contacted Dr. Bunch's office but was not able to follow-up secondary to not having insurance and not being able to afford a procedure. She states she is able to urinate without passing clots. Denies fever, chills, body aches, chest pain, cough or shortness of breath, pain with urination, decreased urine output. (QUEENIE WATSON) Allergies and Home Medications Allergies Coded Allergies: No Known Drug Allergies (Unverified , 02/17/14) Patient Home Medication List Home Medication List Reviewed: Yes (QUEENIE WATSON) Cephalexin (Cephalexin) 500 Mg Tablet, 500 MG PO BID Prescribed by: IVÁN JIMENES on 10/13/16 0502 Cephalexin (Cephalexin) 500 Mg Tablet, 500 MG PO BID Prescribed by: ALYSIA TORREZ on 01/22/22 1200 Hydrocodone/Acetaminophen (Hydrocodone-Acetamin 5-325 mg) 5 Mg-325 Mg Tablet, 1 TAB PO Q4H PRN for PAIN-MODERATE (5-7) Prescribed by: ALYSIA TORREZ on 01/22/22 115 Hydrocodone/Ibuprofen (Hydrocodone-Ibuprofen 7.5-200) 1 Each Tablet, 1 EACH PO Q4H PRN for PAIN-MODERATE Prescribed by: GUNNER BEAL on 04/22/192 Ketorolac Tromethamine (Ketorolac Tromethamine) 10 Mg Tablet, 10 MG PO Q8H Prescribed by: QUEENIE CID on 01/16/22532 Metronidazole (Metronidazole) 500 Mg Tablet, 500 MG PO BID Prescribed by: IVÁN JIMENES on 10/13/16 0502 Nitrofurantoin Monohyd/M-Cryst (Macrobid 100 mg Capsule) 100 Mg Capsule, 100 MG PO BID Prescribed by: GUNNER BEAL on 04/22/192 Ondansetron (Zofran Odt) 4 Mg Tab.rapdis, 4 MG PO Q6H Prescribed by: ZORAIDA CHO on 10/13/16 1730 Ondansetron (Ondansetron Odt) 4 Mg Tab.rapdis, 4 MG PO Q4H Prescribed by: GUNNER BEAL on 04/22/192 Ondansetron (Ondansetron Odt) 4 Mg Tab.rapdis, 4 MG PO Q6H PRN for NAUSEA/VOMITING-1ST LINE Prescribed by: QUEENIE CID on 01/16/22532 Ondansetron (Ondansetron Odt) 4 Mg Tab.rapdis, 4 MG PO Q4H Prescribed by: ALYSIA TORREZ on 01/22/22 115 Oxycodone HCl (Oxycodone HCl) 5 Mg Tablet, 5 MG PO Q6H PRN for PAIN-SEVERE (8- 10) Prescribed by: QUEENIE CID on 01/16/22532 Tamsulosin HCl (Flomax) 0.4 Mg Cap, 0.4 MG PO DAILY Prescribed by: GUNNER BEAL on 04/22/192 Tamsulosin HCl (Flomax) 0.4 Mg Cap, 0.4 MG PO DAILY Prescribed by: QUEENIE CID on 01/16/22532 Tamsulosin HCl (Flomax) 0.4 Mg Cap, 0.4 MG PO DAILY Prescribed by: ALYSIA TORREZ on 01/22/22 1159 Review of Systems Review of Systems Constitutional: No chills, No diaphoresis, No malaise, No weakness EENTM: No hearing loss, No ear pain, No blurred vision, No double vision Respiratory: No dyspnea on exertion Cardiovascular: No chest pain Gastrointestinal: abdominal pain; No diarrhea; nausea, vomiting Genitourinary: denies burning, denies discharge, denies frequency; flank pain Musculoskeletal: back pain; No joint pain Skin: No change in color, No change in hair/nails (QUEENIE WATSON) All Other Systemes Reviewed Negative Unless Noted: Yes (QUEENIE WATSON) Past Dndthbd-Hgkqoz-Tehyqj Hx Patient Social History Tobacco Use?: Yes Tobacco type used: Cigarettes Smoking Status: Current Everyday Smoker Use of E-Cig and/or Vaping dev: No Substance use?: Yes Substance type: Marijuana Substance frequency: Couple times a week Alcohol Use?: No Pt feels they are or have been: No (QUEENIE WATSON) Immunizations Up To Date Tetanus Booster (TDap): Less than 5yrs PED Vaccines UTD: Yes First/Initial COVID19 Vaccinat: declined (QUEENIE WATSON) Seasonal Allergies Seasonal Allergies: No (QUEENIE WATSON) Past Medical History Surgeries: Yes Adenoidectomy, Tonsillectomy Respiratory: Yes Asthma Cardiac: No Neurological: No Last Menstrual Period: Jan 18, 2022 Reproductive Disorders: Yes Female Reproductive Disorders: Ovarian Cyst, Polycystic Ovarian Dis Sexually Transmitted Disease: No Genitourinary: Yes UTI-Chronic Gastrointestinal: No Musculoskeletal: No Endocrine: Yes (OBESITY) HEENT: No Cancer: No Psychosocial: No Integumentary: No Blood Disorders: No (QUEENIE WATSON) Family Medical History No Pertinent Family Hx (QUEENIE WATSON) Physical Exam Vital Signs Vital Signs - First Documented 01/22/22 10:10 Temp 36.8 Pulse 72 Resp 18 B/P (MAP) 153/96 (115) Pulse Ox 99 O2 Delivery Room Air (RUBÉN LUGO MD) Vital Signs Capillary Refill : Less Than 3 Seconds (QUEENIE WATSON) Height, Weight, BMI Height: 5'4.00" Weight: 160lbs. oz. [id number]; 30.00 BMI Method:Stated General Appearance: WD/WN, no apparent distress HEENT: PERRL/EOMI, normal ENT inspection, TMs normal, pharynx normal Neck: non-tender, full range of motion, supple, normal inspection Cardiovascular: regular rate, rhythm, no edema, no gallop, no JVD Respiratory: chest non-tender, lungs clear, normal breath sounds, no respiratory distress, no accessory muscle use Gastrointestinal: normal bowel sounds, soft, no organomegaly, no pulsatile mass, tenderness (Left lower quadrant tenderness) Back: normal inspection, CVA tenderness (L) Extremities: normal range of motion, non-tender, normal inspection, no pedal edema Neurologic/Psychiatric: want ad supervisor II-XII nml as tested, no motor/sensory deficits, alert, normal mood/affect Skin: normal color, warm/dry (QUEENIE WATSON) Progress/Results/Core Measures Suspected Sepsis SIRS Temperature: Pulse: 72 Respiratory Rate: 18 Laboratory Tests 01/22/22 10:20: White Blood Count 10.3 Blood Pressure 153 /96 Mean: 115 Laboratory Tests 01/22/22 10:20: Creatinine 0.94, Platelet Count 349, Total Bilirubin 0.4 (QUEENIE WATSON) Results/Orders Lab Results Laboratory Tests Test 01/22/22 10:20 01/22/22 10:31 Range/Units White Blood Count 10.3 4.3-11.0 10^3/uL Red Blood Count 4.07 3.80-5.11 10^6/uL Hemoglobin 12.6 11.5-16.0 g/dL Hematocrit 38 35-52 % Mean Corpuscular Volume 93 80-99 fL Mean Corpuscular Hemoglobin 31 25-34 pg Mean Corpuscular Hemoglobin Concent 33 32-36 g/dL Red Cell Distribution Width 12.3 10.0-14.5 % Platelet Count 349 130-400 10^3/uL Mean Platelet Volume 10.3 9.0-12.2 fL Immature Granulocyte % (Auto) 0 % Neutrophils (%) (Auto) 60 42-75 % Lymphocytes (%) (Auto) 30 12-44 % Monocytes (%) (Auto) 7 0-12 % Eosinophils (%) (Auto) 2 0-10 % Basophils (%) (Auto) 1 0-10 % Neutrophils # (Auto) 6.2 1.8-7.8 10^3/uL Lymphocytes # (Auto) 3.1 1.0-4.0 10^3/uL Monocytes # (Auto) 0.7 0.0-1.0 10^3/uL Eosinophils # (Auto) 0.2 0.0-0.3 10^3/uL Basophils # (Auto) 0.1 0.0-0.1 10^3/uL Immature Granulocyte # (Auto) 0.0 0.0-0.1 10^3/uL Sodium Level 141 135-145 MMOL/L Potassium Level 4.2 3.6-5.0 MMOL/L Chloride Level 109 H 98-107 MMOL/L Carbon Dioxide Level 22 21-32 MMOL/L Anion Gap 10 5-14 MMOL/L Blood Urea Nitrogen 21 H 7-18 MG/DL Creatinine 0.94 0.60-1.30 MG/DL Estimat Glomerular Filtration Rate 88 BUN/Creatinine Ratio 22 Glucose Level 94 70-105 MG/DL Calcium Level 9.4 8.5-10.1 MG/DL Corrected Calcium 9.2 8.5-10.1 MG/DL Total Bilirubin 0.4 0.1-1.0 MG/DL Aspartate Amino Transf (AST/SGOT) 15 5-34 U/L Alanine Aminotransferase (ALT/SGPT) 10 0-55 U/L Alkaline Phosphatase 76 40-136 U/L Total Protein 7.2 6.4-8.2 GM/DL Albumin 4.2 3.2-4.5 GM/DL Serum Test, Qualitative NEGATIVE NEGATIVE Urine Color YELLOW Urine Clarity CLEAR Urine pH 6.0 5-9 Urine Specific Sunset 1.010 L 1.016-1.022 Urine Protein NEGATIVE NEGATIVE Urine Glucose (UA) NEGATIVE NEGATIVE Urine Ketones NEGATIVE NEGATIVE Urine Nitrite NEGATIVE NEGATIVE Urine Bilirubin NEGATIVE NEGATIVE Urine Urobilinogen 0.2 < = 1.0 MG/DL Urine Leukocyte Esterase 1+ H NEGATIVE Urine RBC (Auto) TRACE-I H NEGATIVE Urine RBC RARE /HPF Urine WBC 5-10 H /HPF Urine Squamous Epithelial Cells 5-10 /HPF Urine Crystals NONE /LPF Urine Bacteria TRACE /HPF Urine Casts NONE /LPF Urine Mucus SMALL H /LPF Urine Culture Indicated YES (RUBÉN LUGO MD) My Orders Orders - RUBÉN LUGO MD Ua Culture If Indicated (01/22/22 10:16) Cbc With Automated Diff (01/22/22 10:18) Comprehensive Metabolic Panel (01/22/22 10:18) Ed Iv/Invasive Line Start (01/22/22 10:18) Hcg,Qualitative Serum (01/22/22 10:18) Urine Culture (01/22/22 10:31) (RUBÉN LUGO MD) Medications Given in ED Current Medications Medications Dose Ordered Sig/Ant Route Start Time Stop Time Status Last Admin Dose Admin Ondansetron HCl 4 mg ONCE ONCE IVP 01/22/22 11:15 01/22/22 11:16 DC 01/22/22 11:27 4 MG (RUBÉN LUGO MD) Vital Signs/I&O 01/22/22 10:10 Temp 36.8 Pulse 72 Resp 18 B/P (MAP) 153/96 (115) Pulse Ox 99 O2 Delivery Room Air (RUBÉN LUGO MD) Vital Signs/I&O Capillary Refill : Less Than 3 Seconds (QUEENIE WATSON) Blood Pressure Mean: 115 Departure Communication (PCP) Patient was diagnosed with a possible left sided kidney/ureter stone last Saturday. Continue pain. Patient has not able to follow-up with Dr. Lambert. Patient with with intermittent vomiting and left flank pain and left lower quadrant pain. Able to urinate. Patient with normal white blood count. Normal kidney function. Urinalysis potentially underlying UTI. CT abdomen and pelvis shows mild left hydronephrosis secondary to a 4.9 mm stone at the level of the left ureteropelvic junction. No evidence of pyelonephritis. Was given a liter of fluid and pain medication with improvement of pain. She states she is also constipated. Discussed taking laxatives at home. Was given pain medication but out of pain medication. Discussed the importance of oral hydration. We will continue prescribing Flomax. Will discharge with Keflex and pain medication. Joseph recommend follow-up with urology. This may not pass and require further treatment such as lithotripsy. She acknowledges. If any worsening symptoms return back to ED for further evaluation. Patient is pain-free. (QUEENIE WATSON) Impression Primary Impression: Ureterolithiasis Disposition: 01 HOME, SELF-CARE Condition: Stable Departure-Patient Inst. Decision time for Depature: 11:58 (QUEENIE WATSON) Referrals: NO,LOCAL PHYSICIAN (PCP) Primary Care Physician WHITLEY ROY MD Patient Instructions: Kidney Stone, Adult ED Scripts Cephalexin (Cephalexin) 500 Mg Tablet 500 MG PO BID for 7 Days, #4 TAB Prov: QUEENIE WATSON 01/22/22 Hydrocodone/Acetaminophen (Hydrocodone-Acetamin 5-325 mg) 5 Mg-325 Mg Tablet 1 TAB PO Q4H PRN for PAIN-MODERATE (5-7), #10 TAB Prov: QUEENIE WATSON 01/22/22 Ondansetron (Ondansetron Odt) 4 Mg Tab.rapdis 4 MG PO Q4H, #8 TAB Prov: QUEENIE WATSON 01/22/22 Tamsulosin HCl (Flomax) 0.4 Mg Cap 0.4 MG PO DAILY, #14 CAP Prov: QUEENIE WATSON 01/22/22 ATTENDING PHYSICIAN NOTE: I was physically present as attending physician in the emergency department during the care of this patient, but I was not directly involved in the decision making or delivery of care for this patient. (RUBÉN LUGO MD) QUEENIE WATSON Jan 22, 2022 11:15 RUBÉN LUGO MD Jan 22, 2022 13:26
--- NOTE | 2022-01-22 11:45 | Diagnostic Imaging Report ---
PROCEDURE: CT urinary tract, rule out kidney stone. TECHNIQUE: Multiple contiguous axial images were obtained through the abdomen and pelvis without the use of intravenous contrast. Auto Exposure Controls were utilized during the CT exam to meet ALARA standards for radiation dose reduction. INDICATION: History of nephrolithiasis now with left flank pain. Exam compared with study 04/21/2019. FINDINGS: There is a 4.9 mm stone at the level of the left ureteropelvic junction found at the L2 inferior endplate level resulting in mild upstream left-sided hydronephrosis. No urinoma or subacute capsular fluid collection. There is no ascites. The aorta is nonaneurysmal. The contralateral right kidney unobstructed, nonfocal and nonacute. There are no additional radiopaque stones. The appendix is normal. Uterus, adnexa and urinary bladder unremarkable. There is no ascites, abscess, hematoma or acute fluid collection. A previously noted right renal calculus within the lower pole has since passed. Some shotty subcentimeter periaortic retroperitoneal lymph nodes. No suspicious or pathologically enlarged melissa mass. Liver, gallbladder, bile ducts, spleen, adrenals and pancreas unremarkable. This patient has a minute amount of right-sided pleural fluid at the posterior sulcus. IMPRESSION: Mild left hydronephrosis secondary to 4.9 mm stone at the level of the left ureteropelvic junction. Resolution of previous right renal calculus, minute right pleural effusion, no other significant finding. Dictated by: Dictated on workstation # [id number]
[2022-01-22] MEDS ORDERED: ACHD5005 PO (11:59)
[2022-01-22] MEDS ORDERED: TMSL.4C PO (11:59)
[2022-01-22] MEDS ORDERED: ONDA4TAB11 PO (11:59)
[2022-01-22] MEDS ORDERED: CEPH500T PO (12:00)
[2022-01-22 12:10] VITALS: BP 146/84
== END 2022-01-22 12:27 | disposition home or self-care (01) ==
LOC: EDUNIT# 10:02 → ER 10:04
DX: N13.2 Hydronephrosis with renal and ureteral calculous obstruction (principal); E66.9 Obesity, unspecified; F17.210 Nicotine dependence, cigarettes, uncomplicated; Z68.30 Body mass index [BMI] 30.0-30.9, adult; Z79.891 Long term (current) use of opiate analgesic; Z28.310 Unvaccinated for COVID-19; Z32.02 Encounter for pregnancy test, result negative
CPT/HCPCS: 36415; 74176; 80053; 81000; 84703; 85025; 87088